=== PATIENT | male | born 1955 | race Caucasian/White ===

== ENCOUNTER 2017-12-05 06:05 | Day surgery (SDC) | payer MEDICARE, MEDICAID ==
[2017-12-05] VITALS (10 sets, daily range): BP systolic 137–160; BP diastolic 87–100
[~2017-12-05] VITALS: Ht 172.7 cm; Wt 65.8 kg
[2017-12-05] MEDS ORDERED: Proparacaine 0.5% Opth Soln 15ml RIGHT EYE ONE (06:15)
[2017-12-05] MEDS ORDERED: Phenylephrine 2.5% Op 2ml Soln ONE (07:10)
[2017-12-05] MEDS ORDERED: Cyclopentolate 1% Opth Sol 2ml ONE (07:10)
[2017-12-05] MEDS ORDERED: Tropicamide 1% Opth 15ml Soln ONE (07:10)
[2017-12-05] MEDS ORDERED: Proparacaine 0.5% Opth Soln 15ml ONE (07:11)
[2017-12-05] MEDS: Cyclopentolate 1% Opth Sol 2ml RIGHT EYE SCH ×3 (07:14→07:37)
[2017-12-05] MEDS: Tropicamide 1% Opth 15ml Soln RIGHT EYE SCH ×3 (07:14→07:37)
[2017-12-05] MEDS: Phenylephrine 2.5% Op 2ml Soln RIGHT EYE SCH ×3 (07:14→07:37)
[2017-12-05] MEDS ORDERED: HUMALOG MI100 UNIT/7 SUBQ (07:26)
[2017-12-05 08:14] LABS: BASOPHILS % (AUTO) 1.3 % (0.0-2.0); HEMATOCRIT 38.7 % (42.0-52.0); HEMOGLOBIN 13.5 G/DL (14.2-18.0); LYMPHOCYTES % (AUTO) 19.4 % (20.0-45.0); MEAN CORPUSCULAR VOLUME 89 FL (80-99); MONOCYTES % (AUTO) 8.7 % (1.0-10.0); NEUTROPHILS % (AUTO) 66.6 % (45.0-75.0); PLATELET COUNT 250 K/UL (150-450); RED BLOOD COUNT 4.36 M/UL (4.70-6.10); RED CELL DISTRIBUTION WIDTH 12.7 % (11.6-14.8); WHITE BLOOD COUNT 5.7 K/UL (4.8-10.8)
[2017-12-05 08:41] LABS: ANION GAP 4 mmol/L (5-15); BLOOD UREA NITROGEN 13 mg/dL (7-18); CALCIUM 9.2 MG/DL (8.5-10.1); CARBON DIOXIDE 29 MMOL/L (21-32); CHLORIDE 103 MMOL/L (98-107); CREATININE 1.1 MG/DL (0.55-1.30); POTASSIUM 3.6 MMOL/L (3.5-5.1); SODIUM 135 MMOL/L (136-145)
[2017-12-05] MEDS ORDERED: Kenalog-40 1ml Vial ONE (08:46)
[2017-12-05] MEDS ORDERED: BSS 500ml btl ONE (08:46)
[2017-12-05] MEDS ORDERED: Dexamethasone 4mg/ml vial ONE (08:47)
[2017-12-05] MEDS ORDERED: Bupivacaine 0.75% 30ml vial INJ ONE (08:47)
[2017-12-05] MEDS ORDERED: Maxitrol Opth Oint 3.5gm ONE (08:47)
[2017-12-05] MEDS ORDERED: EPINEPHrine 1mg/1ml Amp ONE (08:47)
[2017-12-05] MEDS ORDERED: Tetracaine 0.5% Opth 4ml Soln ONE (08:47)
[2017-12-05] MEDS ORDERED: Pred Forte 1% Opth Susp 1ml ONE (08:47)
[2017-12-05] MEDS ORDERED: BSS 15ml BTL ONE (08:48)
[2017-12-05] MEDS ORDERED: Lidocaine 2% MPF 5ml Vial INJ ONE (08:48)
[2017-12-05] MEDS ORDERED: Povidone-Iodine 5% opth solution ONE (08:48)
[2017-12-05] MEDS ORDERED: Goniosol 2.5% Opth Soln - 15ml ONE (08:48)
[2017-12-05] MEDS ORDERED: Acetylcholine Injection (OR) ONE (08:49)
[2017-12-05] MEDS ORDERED: Sodium Hyaluronate 10 mg/ml 0.85ml ONE (08:49)
[2017-12-05] MEDS ORDERED: Lidocaine 1% MPF 10mg/ml 5ml ONE (09:00)
[2017-12-05] MEDS ORDERED: NS Irrig 1000ml ONE (09:00)
[2017-12-05] MEDS ORDERED: Midazolam 2mg/2ml Inj ONE (09:00)
[2017-12-05] MEDS ORDERED: LR 1000ml ONE (09:00)
[2017-12-05] MEDS ORDERED: Sterile Water Irrig 1000ml IRRIG ONE (09:00)
[2017-12-05] MEDS ORDERED: LR 1000ml 1,000 ML IVLG SCH (09:03)
--- NOTE | 2017-12-05 09:03 | Anethesia Preoperative Eval ---
Anesthesia Pre-op PMH/ROS General Date of Evaluation: Dec 05, 2017 Time of Evaluation: 09:11 Anesthesiologist: Daylin ASA Score: ASA 3 Mallampati Score Class I : Soft palate, uvula, fauces, pillars visible Class II: Soft palate, uvula, fauces visible Class III: Soft palate, base of uvula visible Class IV: Only hard plate visible Mallampati Classification: Class II Surgeon: Laly Diagnosis: Retinal Detachment OD Surgical Procedure: Vitrectomy OD Anesthesia History: none Family History: no anesthesia problems Allergies: Coded Allergies: METFORMIN (Verified Allergy, Severe, Rash, 12/05/17) Medications: see eMAR Past Medical History Cardiovascular: Reports: HTN Gastrointestinal/Genitourinary: Reports: other - Incontinent Neurologic/Psychiatric: Reports: depression/anxiety, other - Seizures Endocrine: Reports: DM Hematology/Immune: Reports: anemia Anesthesia Pre-op Phys. Exam Physician Exam Last Vital Signs Date Time Temp Pulse Resp B/P (MAP) Pulse Ox O2 Delivery O2 Flow Rate FiO2 12/05/17 07:32 97.4 94 18 154/87 100 Room Air 97.4 Constitutional: NAD Neurologic: CN 2-12 intact Cardiovascular: RRR Respiratory: CTA Gastrointestinal: S/NT/ND Airway Exam Mallampati Score: Class II MO: limited ROM: limited Teeth: missing, intact Anesthesia Pre-op A/P Labs Hematology Test 12/05/17 06:50 White Blood Count 5.7 K/UL (4.8-10.8) Red Blood Count 4.36 M/UL (4.70-6.10) L Hemoglobin 13.5 G/DL (14.2-18.0) L Hematocrit 38.7 % (42.0-52.0) L Mean Corpuscular Volume 89 FL (80-99) Mean Corpuscular Hemoglobin 31.0 PG (27.0-31.0) Mean Corpuscular Hemoglobin Concent 34.9 G/DL (32.0-36.0) Red Cell Distribution Width 12.7 % (11.6-14.8) Platelet Count 250 K/UL (150-450) Mean Platelet Volume 7.6 FL (6.5-10.1) Neutrophils (%) (Auto) 66.6 % (45.0-75.0) Lymphocytes (%) (Auto) 19.4 % (20.0-45.0) L Monocytes (%) (Auto) 8.7 % (1.0-10.0) Eosinophils (%) (Auto) 4.0 % (0.0-3.0) H Basophils (%) (Auto) 1.3 % (0.0-2.0) Coagulation Test 12/05/17 06:50 Prothrombin Time 10.7 SEC (9.30-11.50) Prothromb Time International Ratio 1.0 (0.9-1.1) Activated Partial Thromboplast Time 27 SEC (23-33) Chemistry Test 12/05/17 06:50 Sodium Level 135 MMOL/L (136-145) L Potassium Level 3.6 MMOL/L (3.5-5.1) Chloride Level 103 MMOL/L (98-107) Carbon Dioxide Level 29 MMOL/L (21-32) Anion Gap 4 mmol/L (5-15) L Blood Urea Nitrogen 13 mg/dL (7-18) Creatinine 1.1 MG/DL (0.55-1.30) Estimat Glomerular Filtration Rate > 60 mL/min (>60) Glucose Level 109 MG/DL (74-106) H Calcium Level 9.2 MG/DL (8.5-10.1) Risk Assessment & Plan Assessment: ASA 3 Plan: GA Status Change Before Surgery: Gabo Orozco MD Dec 05, 2017 09:03
--- NOTE | 2017-12-05 09:04 | Immediate Post-Op Evaluation ---
Immediate Post-Op Evalulation Immediate Post-Op Evalulation Procedure: Vitrectomy OD Date of Evaluation: Dec 05, 2017 Time of Evaluation: 10:47 IV Fluids: 200 LR Blood Products: 0 Estimated Blood Loss: 1 Urinary Output: 0 Blood Pressure Systolic: 168 Blood Pressure Diastolic: 101 Pulse Rate: 98 Respiratory Rate: 16 O2 Sat by Pulse Oximetry: 100 Temperature (Fahrenheit): 97.5 Pain Score (1-10): 1 Nausea: No Vomiting: No Complications 0 Patient Status: awake, reacts, patent, none Hydration Status: adequate Gabo Mao MD Dec 05, 2017 09:04
--- NOTE | 2017-12-05 09:05 | 48 Hour Post Anesthesia Eval ---
Post Anesthesia Evaluation Procedure: Vitrectomy OD Date of Evaluation: Dec 05, 2017 Time of Evaluation: 13:06 Blood Pressure Systolic: 167 0: 99 Pulse Rate: 98 Respiratory Rate: 18 Temperature (Fahrenheit): 97.8 O2 Sat by Pulse Oximetry: 99 Airway: patent Nausea: No Vomiting: No Pain Intensity: 1 Hydration Status: adequate Cardiopulmonary Status: Stable Mental Status/LOC: patient returned to baseline Follow-up Care/Observations: 0 Post-Anesthesia Complications: 0 Follow-up care needed: ready to discharge Gabo Mao MD Dec 05, 2017 09:05
[2017-12-05] MEDS ORDERED: oxyCODONE HCL/Acetaminophen 5/325mg ORAL PRN (09:15)
[2017-12-05] MEDS ORDERED: Hydromorphone 0.5mg/0.5ml inj IVP PRN (09:15)
[2017-12-05] MEDS ORDERED: Labetalol 5mg/ml 20ml vial IV PRN (09:15)
[2017-12-05] MEDS ORDERED: fentaNYL 100 mcg/2 mL IV PRN (09:15)
[2017-12-05] MEDS ORDERED: HYDROcodone/Acetamin 7.5/325 tab ORAL PRN (09:15)
[2017-12-05] MEDS ORDERED: Atropine Inj 1mg/10ml Syr IV PRN (09:15)
[2017-12-05] MEDS ORDERED: Ketorolac 30mg Inj IV PRN ×2 (09:15)
[2017-12-05] MEDS ORDERED: Norco 5mg/325mg tab ORAL PRN (09:15)
[2017-12-05] MEDS ORDERED: LORazepam Inj 2mg/ml 1ml IV PRN (09:15)
[2017-12-05] MEDS ORDERED: Midazolam 2mg/2ml Inj IVP PRN (09:15)
[2017-12-05] MEDS ORDERED: DiphenhydrAMINE 50mg/ml Inj IVP PRN (09:15)
--- NOTE | 2017-12-05 09:20 | Pre-Procedure Note/Attestation ---
Pre-Procedure Note/Attestation Complete Prior to Procedure Planned Procedure: right Procedure Narrative: Patient with progressive PDR/TD OD Indications for Procedure Pre-Operative Diagnosis: PDR/TRD/VH OD Attestation I attest that I discussed the nature of the procedure; its benefits; risks and complications; and alternatives (and the risks and benefits of such alternatives ), prior to the procedure, with the patient (or the patient's legal insurance healthcare representative). I attest that, if there was a reasonable possibility of needing a blood transfusion, the patient (or the patient's legal insurance healthcare representative) was given the [facility] standardized written summary, pursuant to the Corey Manda Blood Safety Act ([place] Health and Safety Code # 1645, as amended). I attest that I re-evaluated the patient just prior to the surgery and that there has been no change in the patient's H&P, except as documented below: Ryan Ruffin M.D. Dec 05, 2017 09:20
--- NOTE | 2017-12-05 09:21 | Brief Operative Note ---
Immediate Post Operative Note Operative Note Pre-op Diagnosis: PDR/TRD/VH OD Procedure: PPV/MP/EL/SO OD Post-op Diagnosis: Same Surgeon: Laly Anesthesia: local Specimen: none Complications: none Condition: stable Fluids: min Estimated Blood Loss: none Drains: none Implant(s) used?: Yes - SO Ryan Ruffin M.D. Dec 05, 2017 09:21
[2017-12-05] MEDS ORDERED: Lacri-Lube Opth Oint 3.5gm ONE (09:29)
--- NOTE | 2017-12-05 09:32 | Operative Note - PDOC ---
Operative Note Operative Note Pre-op Diagnosis: PDR/TRD/VH OD Procedure: PPV/MP/EL/SO (1K) OD Post-op Diagnosis: Same Surgeon: Laly Anesthesia: local Specimen: none Complications: none Condition: stable Fluids: min Estimated Blood Loss: none Drains: none Implant(s) used?: Yes - SO Indications for Procedure Location: [facility] [place] Pre-operative Diagnosis: 1. PDR/TRD/VH, RIGHT EYE 2. Cataract, RIGHT EYE Post-operative Diagnosis: Same Procedure: Pars plana vitrectomy, membrane peel, endolaser, air-fluid exchange , silicone oil, RIGHT EYE Surgeon: Ryan Ruffin M.D. Anesthesia: RB Complications: None Indications for the procedure: The patient has vision loss due PDR/TRD/VH. He presents today for surgery after review of the risks, benefits, alternative and signing informed consent into the medical chart. Description of Procedure Procedure performed: The patient was met in the pre-operative area where informed consent was reviewed. The operative eye was verified, marked and dilated. The patient was transferred to the operative suite, where cardiopulmonary monitoring was established and rtrobulbar anesthetic was administered without complications. The eye was prepped and draped in sterile ophthalmic fashion. Under microscope visualization the 23 gauge infusion line was placed 4 millimeters inferotemporally. After visualization of the tip in the vitreous cavity, the infusion line was turned on. The superotemporal and superonasal cannulas were placed. Peripheral and core vitrectomy was performed. As the vitreous was cleared the posterior pole was revealed to be elevated with gliosis. The membranes were peeled and active hemorrhage was cauterized. Further peripheral vitrectomy was performed. PRP was applied to the periphery. Inspection of the periphery revealed no iatrogenic breaks. Air fluid exchange was performed. Silicone oil (1K cS) was infused into the eye. The cannulas were removed. The eye maintained normal intraocular pressure. Subconjunctival vancomycin and dexamethasone were administered. The lid speculum was removed. The eye was cleaned of prep and drape. Atropine drop and Maxitrol ointment was applied. A pressure patch was placed. The patient was turned over to the anesthesia team and transferred in stable condition to the PACU. Ryan Ruffin M.D. Dec 05, 2017 09:32
--- NOTE | 2017-12-05 16:45 | Pre-op HX & Phy Repo 2 SIG ---
DATE OF ADMISSION: 12/05/2017 PRESURGICAL INTERNAL MEDICINE HISTORY AND PHYSICAL REASON FOR EVALUATION: I was asked by Dr. Ryan Ruffin to see this 62-year-old male who is going for emergency surgery on the right eye. The patient has a tractional retinal detachment, right eye. Please see full Ophthalmology History and Physical by Dr. Ruffin. The patient was examined. Chart was reviewed. History obtained from the patient and his brother at the bedside. PAST MEDICAL HISTORY AND REVIEW OF SYSTEMS: Remarkable for history of hypertension, no medication treatment. The patient is a diabetic, on insulin. The patient denies history of chest pain, palpitation, or heart attack. Denies history of respiratory problem, asthma, bronchitis, or pneumonia. No history of GI bleeding or heartburn. No ulcer disease or hepatitis. Denies history of renal insufficiency. No history of thyroid problem. Denies history of anemia. The patient had a fall and subdural hematoma in July 2017. 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 The patient is still on the IV and oral antibiotics. Brother shows me IV medication, which is vancomycin once a day. PAST SURGICAL HISTORY: None. FAMILY HISTORY: Mother from complication of the breast cancer and father from the stroke and he has also diabetes mellitus. ALLERGIES: The patient is allergic to metformin, developed skin rashes and itching. HABITS: The patient smoked in the 1970s for about between 5 and 7 years, but he 4-pack a day. Also alcohol in the past. No street drugs. MEDICATIONS: The patient uses insulin to control blood sugar and presently using IV vancomycin and oral antibiotics. PHYSICAL EXAMINATION: GENERAL: The patient is alert, small-framed male, in his 60s, no acute distress. VITAL SIGNS: Blood pressure 154/87, temperature 97.4, pulse 94 and regular, respirations 18, and O2 saturation 100% on room air. SKIN: The patient's skin dry. Normal turgor, cold, pale. No rashes. No ulcer or open wound. HEENT: Head, normocephalic. Eyes, full description per Dr. Marlyn Ruffin. Mouth, clear and moist. No dentures. NECK: Supple. No jugular vein distention. Carotids artery +2. Trachea midline. CHEST: No deformity or asymmetry. LUNGS: Clear. No rales or rhonchi. HEART: Sinus rhythm. No ectopy. No murmur. No S3, S4. ABDOMEN: Soft, benign. Liver and spleen not enlarged. No rebound. EXTREMITIES: +1 pedal edema on the left ankle. No varicose veins. No calf tenderness. GENITOURINARY TRACT: No CVA tenderness. No dysuria. NERVOUS SYSTEM: Right facial asymmetry, Herrera's palsy. LABORATORY WORK: CBC, white blood cells 5.7, hemoglobin 13.5, hematocrit 38.7. Chemistry pending. Fasting blood sugar, fingerstick 110 mg/dL. ECG, normal sinus rhythm, 93 per minute, normal ECG. The patient did not eat or drink from 6 p.m. yesterday. IMPRESSION: 1. Tractional retinal detachment, right eye. 2. Hypertension, not treated. 3. Diabetes mellitus, insulin dependent. 4. Anemia. 5. Right internal otitis. 6. Right Herrera's palsy. PLAN: Pars plana vitrectomy 23 G, membrane peeling, Endolaser right eye per Dr. Marlyn Ruffin. CONCLUSION: The patient is a 62-year-old diabetic, which is controlled. The patient has a history of hypertension, but does not take any medication. The patient also has a recent otitis media, right ear, which is complication of Herrera's palsy on the right. The patient did not eat or drink from last night 6 p.m. His EKG is normal. The patient's condition optimized for surgery. Thank you very much, Dr. Ruffin, for privilege to participate in presurgical care of this interesting patient. Gloria Delgado M.D. DR: LISSETH JOB#: [id number] CC:
--- NOTE | 2017-12-08 16:20 | Cardiology Report ---
APPROVED REPORT EKG Measurement Heart [id number] Normal sinus rhythm Normal ECG
== END 2017-12-05 13:20 | disposition home or self-care (01) ==
LOC: SUR 06:05
DX: H33.41 Traction detachment of retina, right eye (principal); I10 Essential (primary) hypertension; E11.9 Type 2 diabetes mellitus without complications; Z79.4 Long term (current) use of insulin; D64.9 Anemia, unspecified; H83.01 Labyrinthitis, right ear; G51.0 Bell's palsy; F17.210 Nicotine dependence, cigarettes, uncomplicated; F32.9 Major depressive disorder, single episode, unspecified; F41.9 Anxiety disorder, unspecified; Z88.8 Allergy status to other drugs, medicaments and biological substances; Z80.3 Family history of malignant neoplasm of breast; Z83.3 Family history of diabetes mellitus; Z82.3 Family history of stroke; H26.9 Unspecified cataract
CPT/HCPCS: 36415; 67025; 67042; 80048; 82962; 85025; 85610; 85730; 93005; J1100; J1885; J2250; J3370; J3490; J7120; 94003; 94150

== ENCOUNTER 2017-12-31 08:54 | Day surgery (SDC) | payer MEDICARE, MEDICAID ==
[~2017-12-31] VITALS: Ht 170.2 cm; Wt 63.0 kg
[2017-12-31] VITALS (8 sets, daily range): BP systolic 123–166; BP diastolic 78–93
[~2017-12-31 08:54] MED LIST: BSS 15ml BTL ONE; BSS 500ml btl ONE; Bupivacaine 0.75% 30ml vial INJ ONE; Dexamethasone 4mg/ml vial ONE; EPINEPHrine 1mg/1ml Amp ONE; Goniosol 2.5% Opth Soln - 15ml ONE; HUMALOG MI100 UNIT/7 SUBQ; Kenalog-40 1ml Vial ONE; Lidocaine 2% MPF 5ml Vial INJ ONE; Maxitrol Opth Oint 3.5gm ONE; Povidone-Iodine 5% opth solution ONE; Pred Forte 1% Opth Susp 1ml ONE; Sodium Hyaluronate 10 mg/ml 0.85ml ONE; Tetracaine 0.5% Opth 4ml Soln ONE
[2017-12-31] MEDS ORDERED: Cyclopentolate 1% Opth Sol 2ml ONE (09:23)
[2017-12-31] MEDS ORDERED: Proparacaine 0.5% Opth Soln 15ml ONE (09:24)
[2017-12-31] MEDS ORDERED: Phenylephrine 2.5% Op 2ml Soln ONE (09:24)
[2017-12-31] MEDS ORDERED: Tropicamide 1% Opth 15ml Soln ONE (09:24)
[2017-12-31] MEDS ORDERED: Proparacaine 0.5% Opth Soln 15ml LEFT EYE ONE (09:30)
[2017-12-31] MEDS: Cyclopentolate 1% Opth Sol 2ml LEFT EYE SCH ×3 (09:32→09:51)
[2017-12-31] MEDS: Phenylephrine 2.5% Op 2ml Soln LEFT EYE SCH ×3 (09:33→09:51)
[2017-12-31] MEDS: Tropicamide 1% Opth 15ml Soln LEFT EYE SCH ×3 (09:33→09:51)
[2017-12-31] MEDS ORDERED: Acetylcholine Injection (OR) ONE (09:51)
[2017-12-31] MEDS ORDERED: HUMALOG100 UNIT/4 SUBQ (09:58)
[2017-12-31] MEDS ORDERED: LANTUS SOL100 UNIT/1 SUBQ (10:01)
[2017-12-31] MEDS ORDERED: CEFEPIME IVP (10:10)
[2017-12-31] MEDS ORDERED: VANCO-0.9%750 MG/150 IV (10:10)
[2017-12-31] MEDS ORDERED: Indocyanine Green 25mg Inj INJ ONE (10:30)
[2017-12-31] MEDS ORDERED: Propofol 200mg/20ml IV ONE (10:57)
[2017-12-31] MEDS ORDERED: Labetalol 5mg/ml 20ml vial IV ONE (11:00)
[2017-12-31] MEDS ORDERED: Sterile Water Irrig 1000ml IRRIG ONE (11:00)
[2017-12-31] MEDS ORDERED: Midazolam 2mg/2ml Inj ONE (11:00)
[2017-12-31] MEDS ORDERED: NS Irrig 1000ml ONE (11:00)
[2017-12-31] MEDS ORDERED: LR 1000ml ONE (11:00)
--- NOTE | 2017-12-31 11:13 | Pre-Procedure Note/Attestation ---
Pre-Procedure Note/Attestation Complete Prior to Procedure Planned Procedure: left Procedure Narrative: PDR/VH/TRD OS Plan for PPV Indications for Procedure Pre-Operative Diagnosis: PDR/VH/TRD OS Plan for PPV Attestation I attest that I discussed the nature of the procedure; its benefits; risks and complications; and alternatives (and the risks and benefits of such alternatives ), prior to the procedure, with the patient (or the patient's legal sales representative malt liquors). I attest that, if there was a reasonable possibility of needing a blood transfusion, the patient (or the patient's legal sales representative malt liquors) was given the [facility] standardized written summary, pursuant to the Corey [place] Blood Safety Act ([place] Health and Safety Code # 1645, as amended). I attest that I re-evaluated the patient just prior to the surgery and that there has been no change in the patient's H&P, except as documented below: Ryan Ruffin M.D. Dec 31, 2017 11:13
--- NOTE | 2017-12-31 11:14 | Brief Operative Note ---
Immediate Post Operative Note Operative Note Pre-op Diagnosis: PDR/VH/TRD OS Plan for PPV Procedure: PPV/EL/MP/SO OS Post-op Diagnosis: Same Surgeon: Laly Anesthesia: local Specimen: none Complications: none Condition: stable Fluids: Min Estimated Blood Loss: minimal Drains: none Implant(s) used?: Yes - SO Ryan Ruffin M.D. Dec 31, 2017 11:14
--- NOTE | 2017-12-31 11:14 | Operative Note - PDOC ---
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 After review of the risks, benefits, alternative and the patient signed informed consent into the medical chart. Description of Procedure Procedure performed: The patient was met in the pre-operative area where informed consent was reviewed. The operative eye was verified, marked and dilated. The patient was transferred to the operative suite, where cardiopulmonary monitoring was established and rtrobulbar anesthetic was administered without complications. The eye was prepped and draped in sterile ophthalmic fashion. Under microscope visualization the 23 gauge infusion line was placed 4 millimeters inferotemporally. After visualization of the tip in the vitreous cavity, the infusion line was turned on. The superotemporal and superonasal cannulas were placed. Peripheral and core vitrectomy was performed. As the vitreous was cleared the posterior pole was revealed to be elevated with gliosis and exudates in the macula. The membranes were peeled and an area of retinal elevation temporally was dissected to allow the retina to reattached. Endolaser was applied to surround the retinal breaks. Further peripheral vitrectomy was performed. PRP was applied to the periphery as there was very little laser scarring noted. Inspection of the periphery revealed no iatrogenic breaks. Air fluid exchange was performed. Silicone oil (1K cS) was infused into the eye. The cannulas were removed. The eye maintained normal intraocular pressure. Subconjunctival vancomycin and dexamethasone were administered. The lid speculum was removed. The eye was cleaned of prep and drape. Atropine drop and Maxitrol ointment was applied. A pressure patch was placed. The patient was turned over to the anesthesia team and transferred in stable condition to the PACU. Ryan Ruffin M.D. Dec 31, 2017 11:14
--- NOTE | 2017-12-31 11:42 | Anethesia Preoperative Eval ---
Anesthesia Pre-op PMH/ROS General Date of Evaluation: Dec 31, 2017 Time of Evaluation: 10:55 Anesthesiologist: Oni ASA Score: ASA 3 Mallampati Score Class I : Soft palate, uvula, fauces, pillars visible Class II: Soft palate, uvula, fauces visible Class III: Soft palate, base of uvula visible Class IV: Only hard plate visible Mallampati Classification: Class II Surgeon: Laly Diagnosis: Retinal detachment left eye Surgical Procedure: Vitrectomy, membrane peeling Family History: no anesthesia problems Allergies: Coded Allergies: METFORMIN (Verified Allergy, Severe, Rash, 12/05/17) Medications: see eMAR Past Medical History Cardiovascular: Reports: HTN; Denies: CAD, [place], valve dz, arrhythmia, other Pulmonary: Denies: asthma, COPD, MADDY, other Gastrointestinal/Genitourinary: Denies: GERD, CRI, ESRD, other Neurologic/Psychiatric: Denies: dementia, CVA, depression/anxiety, TIA, other Endocrine: Reports: DM; Denies: hypothyroidism, steroids, other HEENT: Denies: cataract (L), cataract (R), glaucoma, [place] (L), [place] (R), other Hematology/Immune: Denies: anemia, DVT, bleeding disorder, other Musculoskeletal/Integumentary: Denies: OA, RA, DJD, DDD, edema, other PMH Narrative: IDDM, HTN PSxH Narrative: Vitrectomy Anesthesia Pre-op Phys. Exam Physician Exam Last Vital Signs Date Time Temp Pulse Resp B/P (MAP) Pulse Ox O2 Delivery O2 Flow Rate FiO2 12/31/17 10:01 98.0 93 18 166/93 99 Room Air 98.0 Constitutional: NAD Neurologic: CN 2-12 intact Cardiovascular: RRR, no M/R/G Respiratory: CTA Gastrointestinal: S/NT/ND Airway Exam Mallampati Score: Class II MO: full ROM: full Teeth: intact Anesthesia Pre-op A/P Studies Pre-op Studies: EKG - SR as per H&P Risk Assessment & Plan Assessment: Detached retina Plan: MAC Status Change Before Surgery: No Pre-Antibiotics Drug: None Corey Bunn MD Dec 31, 2017 11:42
[2017-12-31] MEDS ORDERED: LR 1000ml 1,000 ML IVLG SCH (11:43)
--- NOTE | 2017-12-31 11:43 | Immediate Post-Op Evaluation ---
Immediate Post-Op Evalulation Immediate Post-Op Evalulation Procedure: Vitrectomy, membrane peel left eye Date of Evaluation: Dec 31, 2017 Time of Evaluation: 12:40 IV Fluids: 200 Blood Pressure Systolic: 129 Blood Pressure Diastolic: 80 Pulse Rate: 95 Respiratory Rate: 20 O2 Sat by Pulse Oximetry: 99 Temperature (Fahrenheit): 98.2 Pain Score (1-10): 0 Nausea: No Vomiting: No Complications No complication Patient Status: awake, patent, none Hydration Status: adequate Drug: None Corey Bunn MD Dec 31, 2017 11:43
[2017-12-31] MEDS ORDERED: fentaNYL 100 mcg/2 mL IV PRN (11:45)
--- NOTE | 2017-12-31 12:33 | 48 Hour Post Anesthesia Eval ---
Post Anesthesia Evaluation Procedure: Vitrectomy, membrane peel left eye Date of Evaluation: Dec 31, 2017 Time of Evaluation: 13:00 Blood Pressure Systolic: 135 0: 80 Pulse Rate: 95 Respiratory Rate: 18 O2 Sat by Pulse Oximetry: 99 Airway: patent Nausea: No Vomiting: No Pain Intensity: 0 Hydration Status: adequate Cardiopulmonary Status: Stable Mental Status/LOC: patient returned to baseline Follow-up Care/Observations: As per surgery Post-Anesthesia Complications: No anesthetic complication Follow-up care needed: N/A Corey Bunn MD Dec 31, 2017 12:33
== END 2017-12-31 14:25 | disposition home or self-care (01) ==
LOC: SUR 08:54
DX: E11.3522 Type 2 diabetes mellitus with proliferative diabetic retinopathy with traction retinal detachment involving the macula, left eye (principal); H43.12 Vitreous hemorrhage, left eye; I10 Essential (primary) hypertension; Z83.3 Family history of diabetes mellitus; Z82.3 Family history of stroke; Z80.3 Family history of malignant neoplasm of breast; Z88.8 Allergy status to other drugs, medicaments and biological substances; Z79.4 Long term (current) use of insulin
CPT/HCPCS: 67040; 67042; 82962; J1100; J2250; J2704; J3370; J3490; J7120; 94003; 94150

== ENCOUNTER 2018-07-09 08:12 | Day surgery (SDC) | payer MEDICARE, MEDICAID ==
[~2018-07-09] VITALS: Ht 170.2 cm; Wt 59.0 kg
[2018-07-09] VITALS (7 sets, daily range): BP systolic 119–128; BP diastolic 62–72
[~2018-07-09 08:12] MED LIST changes: -BSS 15ml BTL ONE; -BSS 500ml btl ONE; -Bupivacaine 0.75% 30ml vial INJ ONE; +CEFEPIME IVP; -Dexamethasone 4mg/ml vial ONE; -EPINEPHrine 1mg/1ml Amp ONE; -Goniosol 2.5% Opth Soln - 15ml ONE; +HUMALOG100 UNIT/4 SUBQ; -Kenalog-40 1ml Vial ONE; +LANTUS SOL100 UNIT/1 SUBQ; -Lidocaine 2% MPF 5ml Vial INJ ONE; -Maxitrol Opth Oint 3.5gm ONE; -Povidone-Iodine 5% opth solution ONE; -Pred Forte 1% Opth Susp 1ml ONE; +Proparacaine 0.5% Opth Soln 15ml RIGHT EYE SCH; -Sodium Hyaluronate 10 mg/ml 0.85ml ONE; -Tetracaine 0.5% Opth 4ml Soln ONE; +VANCO-0.9%750 MG/150 IV
[2018-07-09] MEDS ORDERED: Kenalog-40 1ml Vial ONE (09:34)
[2018-07-09] MEDS ORDERED: EPINEPHrine 1mg/1ml Amp ONE (09:34)
[2018-07-09] MEDS ORDERED: Lidocaine 2% MPF 5ml Vial INJ ONE (09:34)
[2018-07-09] MEDS ORDERED: Goniosol 2.5% Opth Soln - 15ml ONE (09:35)
[2018-07-09] MEDS ORDERED: Maxitrol Opth Oint 3.5gm ONE (09:35)
[2018-07-09] MEDS ORDERED: Pred Forte 1% Opth Susp 1ml ONE (09:35)
[2018-07-09] MEDS ORDERED: Dexamethasone 4mg/ml vial ONE (09:35)
[2018-07-09] MEDS ORDERED: BSS 500ml btl ONE (09:36)
[2018-07-09] MEDS ORDERED: Sodium Hyaluronate 10 mg/ml 0.85ml ONE (09:36)
[2018-07-09] MEDS ORDERED: Bupivacaine 0.75% 30ml vial INJ ONE (09:36)
[2018-07-09] MEDS ORDERED: Povidone-Iodine 5% opth solution ONE (09:36)
[2018-07-09] MEDS ORDERED: BSS 15ml BTL ONE (09:36)
[2018-07-09] MEDS ORDERED: Tetracaine 0.5% Opth 4ml Soln ONE (09:40)
[2018-07-09] MEDS: Cyclopentolate 1% Opth Sol 2ml RIGHT EYE SCH ×3 (10:04→10:22)
[2018-07-09] MEDS: Tropicamide 1% Opth 15ml Soln RIGHT EYE SCH ×3 (10:04→10:23)
[2018-07-09] MEDS: Phenylephrine 2.5% Op 2ml Soln RIGHT EYE SCH ×3 (10:04→10:23)
[2018-07-09] MEDS ORDERED: Propofol 200mg/20ml IV ONE (12:14)
--- NOTE | 2018-07-09 12:14 | Anethesia Preoperative Eval ---
Anesthesia Pre-op PMH/ROS General Date of Evaluation: Jul 09, 2018 Time of Evaluation: 12:08 Anesthesiologist: Sofie Taylor CRNA ASA Score: ASA 3 Mallampati Score Class I : Soft palate, uvula, fauces, pillars visible Class II: Soft palate, uvula, fauces visible Class III: Soft palate, base of uvula visible Class IV: Only hard plate visible Mallampati Classification: Class III Surgeon: Laly Diagnosis: Retinal detachment Surgical Procedure: RIGHT eye pars plana vitrecttomy, silicone oil Anesthesia History: none Social History: smoking Family History: no anesthesia problems Allergies: Coded Allergies: METFORMIN (Verified Allergy, Severe, Rash, 12/05/17) Medications: see eMAR Patient NPO?: Yes NPO Date: Jul 09, 2018 NPO Time: 00:00 Past Medical History Cardiovascular: Reports: other - orthostatic hypotension; Denies: HTN, CAD, [place], valve dz, arrhythmia Pulmonary: Denies: asthma, COPD, MADDY, other Gastrointestinal/Genitourinary: Denies: GERD, CRI, ESRD, other Neurologic/Psychiatric: Reports: other - CN VII palsy, bells palsy; Denies: dementia, CVA, depression/anxiety, TIA Endocrine: Reports: DM, other - Severe dehydration, chechexia, IV hydration q MWF; peripheral neuropathy; Denies: hypothyroidism, steroids HEENT: Reports: other - (B) retinal detachment; LEFT bells palsy; Denies: cataract (L), cataract (R), glaucoma, [place] (L), [place] (R) Hematology/Immune: Denies: anemia, DVT, bleeding disorder, other Musculoskeletal/Integumentary: Reports: other - wheelchair dependent; Denies: OA, RA, DJD, DDD, edema PMH Narrative: as above PSxH Narrative: multiple eye surgeries, ear surgery Anesthesia Pre-op Phys. Exam Physician Exam Last Vital Signs Date Time Temp Pulse Resp B/P (MAP) Pulse Ox O2 Delivery O2 Flow Rate FiO2 07/09/18 09:16 97.9 86 20 128/72 97 Room Air 97.9 Constitutional: NAD Neurologic: CN 2-12 intact Cardiovascular: RRR Respiratory: CTA Gastrointestinal: S/NT/ND Airway Exam Mallampati Score: Class III MO: limited TMD: > 3 FB Teeth: missing, broken Dentures: no upper, no lower Anesthesia Pre-op A/P Labs see chart Ankit Zuleta @ [id number] Studies Pre-op Studies: EKG - NSR Risk Assessment & Plan Status Change Before Surgery: No Sofie Taylor CRNA Jul 09, 2018 12:14
[2018-07-09] MEDS ORDERED: fentaNYL 100 mcg/2 mL IV ONE (12:15)
[2018-07-09] MEDS ORDERED: Midazolam 2mg/2ml Inj ONE (12:15)
--- NOTE | 2018-07-09 12:59 | Pre-Procedure Note/Attestation ---
Pre-Procedure Note/Attestation Complete Prior to Procedure Planned Procedure: right Procedure Narrative: PPV/SOR/EL OD Indications for Procedure Pre-Operative Diagnosis: PDR OD Attestation I attest that I discussed the nature of the procedure; its benefits; risks and complications; and alternatives (and the risks and benefits of such alternatives ), prior to the procedure, with the patient (or the patient's legal technology sales representative). I attest that, if there was a reasonable possibility of needing a blood transfusion, the patient (or the patient's legal technology sales representative) was given the [facility] standardized written summary, pursuant to the [place] Blood Safety Act ([place] Health and Safety Code # 1645, as amended). I attest that I re-evaluated the patient just prior to the surgery and that there has been no change in the patient's H&P, except as documented below: Ryan Ruffin M.D., MD Jul 09, 2018 12:59
[2018-07-09] MEDS ORDERED: LR 1000ml ONE (13:00)
--- NOTE | 2018-07-09 13:01 | Operative Note - PDOC ---
Operative Note Operative Note Pre-op Diagnosis: Proliferative diabetic retinopathy with tractional retinal detachment repaired s /p SO placement, cataract, RIGHT EYE Procedure: Procedure: Pars plana vitrectomy, SO removal, endolaser, air-fluid exchange RIGHT EYE Post-op Diagnosis: same as pre-op Surgeon: Laly Anesthesia: local Specimen: none Complications: none Condition: stable Fluids: minimal Estimated Blood Loss: none Drains: none Implant(s) used?: No Indications for Procedure Indications for the procedure: The patient has vision loss due to proliferative diabetic retinopathy/ tractional retinal detachment with SO and presents today for surgery. After review of the risks, benefits, alternative and the patient signed informed consent into the medical chart. Description of Procedure Procedure performed: The patient was met in the pre-op area where informed consent was reviewed. The operative eye was verified, marked and dilated. The patient was transferred to the operative suite, where cardiopulmonary monitoring was established and peribulbar anesthetic was administered without complications. The eye was prepped and draped in sterile ophthalmic fashion. Under microscope visualization the 23 gauge infusion line was placed inferotemporally. After visualization of the tip in the vitreous cavity, the infusion line was turned on. The superotemporal and superonasal cannulas were placed. The SO was removed from the eye. Under BIOM visualization, the view of the posterior pole was limited by cataract. Inspection of the posterior pole revealed areas of NV; thus further peripheral vitrectomy was performed and endolaser was applied to perform complete PRP. No breaks were noted on peripheral exam. Air-fluid exchange was performed. The cannulas were removed and sclerotomies were sutured. The eye maintained normal intraocular pressure. Subconjunctival vancomycin and dexamethasone were administered. The lid speculum was removed. The eye was cleaned of prep and drape. Atropine drop and Maxitrol ointment was applied. A pressure patch was placed. The patient was turned over to the anesthesia team and transferred in stable condition to the PACU. Ryan Ruffin M.D., MD Jul 09, 2018 13:01
[2018-07-09] MEDS ORDERED: Carbachol 0.01% Op Soln 1.5ml vial ONE (13:24)
[2018-07-09] MEDS ORDERED: Acetylcholine Injection (OR) ONE (13:25)
--- NOTE | 2018-07-09 13:57 | Immediate Post-Op Evaluation ---
Immediate Post-Op Evalulation Immediate Post-Op Evalulation Procedure: Right pars plana vitrectomy, silicone oil Date of Evaluation: Jul 09, 2018 Time of Evaluation: 13:56 IV Fluids: 600 ml Blood Products: 0 Estimated Blood Loss: minimal Blood Pressure Systolic: 121 Blood Pressure Diastolic: 66 Pulse Rate: 85 Respiratory Rate: 18 O2 Sat by Pulse Oximetry: 100 Temperature (Fahrenheit): 99.2 Pain Score (1-10): 0 Nausea: No Vomiting: No Complications none Patient Status: awake, reacts, patent Hydration Status: adequate Koki Singleton CRNA Jul 09, 2018 13:57
--- NOTE | 2018-07-09 14:15 | 48 Hour Post Anesthesia Eval ---
Post Anesthesia Evaluation Procedure: Right pars plana vitrectomy, silicone oil removal, laser Date of Evaluation: Jul 09, 2018 Time of Evaluation: 14:14 Blood Pressure Systolic: 122 0: 64 Pulse Rate: 88 Respiratory Rate: 20 Temperature (Fahrenheit): 98.8 O2 Sat by Pulse Oximetry: 98 Airway: patent Nausea: No Vomiting: No Pain Intensity: 0 Hydration Status: adequate Cardiopulmonary Status: stable Mental Status/LOC: patient returned to baseline Follow-up Care/Observations: per surgeon Post-Anesthesia Complications: none Follow-up care needed: ready to discharge Sofie Taylor CRNA Jul 09, 2018 14:15
== END 2018-07-09 16:00 | disposition home or self-care (01) ==
LOC: SUR 08:12
DX: H33.21 Serous retinal detachment, right eye (principal); E11.3591 Type 2 diabetes mellitus with proliferative diabetic retinopathy without macular edema, right eye; Z79.4 Long term (current) use of insulin; E11.40 Type 2 diabetes mellitus with diabetic neuropathy, unspecified; G51.0 Bell's palsy; E78.1 Pure hyperglyceridemia; R64 Cachexia; E43 Unspecified severe protein-calorie malnutrition; Z99.3 Dependence on wheelchair
CPT/HCPCS: 67121; 82962; J0171; J1100; J2250; J2704; J3010; J3370; J3490; 94003; 94150

== ENCOUNTER 2018-07-22 09:04 | Day surgery (SDC) | payer MEDICARE, MEDICAID ==
[~2018-07-22] VITALS: Ht 170.2 cm; Wt 58.5 kg
[2018-07-22] VITALS (9 sets, daily range): BP systolic 148–173; BP diastolic 81–94
[~2018-07-22 09:04] MED LIST changes: +Proparacaine 0.5% Opth Soln 15ml LEFT EYE SCH; -Proparacaine 0.5% Opth Soln 15ml RIGHT EYE SCH
[2018-07-22] MEDS ORDERED: Cyclopentolate 1% Opth Sol 2ml ONE (09:23)
[2018-07-22] MEDS ORDERED: Phenylephrine 2.5% Op 2ml Soln ONE (09:23)
[2018-07-22] MEDS ORDERED: Tropicamide 1% Opth 15ml Soln ONE (09:24)
[2018-07-22] MEDS ORDERED: Proparacaine 0.5% Opth Soln 15ml ONE (09:24)
[2018-07-22] MEDS: Tropicamide 1% Opth 15ml Soln LEFT EYE SCH ×3 (09:51→10:11)
[2018-07-22] MEDS: Phenylephrine 2.5% Op 2ml Soln LEFT EYE SCH ×3 (09:52→10:11)
[2018-07-22] MEDS: Cyclopentolate 1% Opth Sol 2ml LEFT EYE SCH ×3 (09:52→10:11)
[2018-07-22] MEDS ORDERED: Lidocaine 2% MPF 5ml Vial INJ ONE (10:16)
[2018-07-22] MEDS ORDERED: EPINEPHrine 1mg/1ml Amp ONE (10:16)
[2018-07-22] MEDS ORDERED: Kenalog-40 1ml Vial ONE (10:16)
[2018-07-22] MEDS ORDERED: Pred Forte 1% Opth Susp 1ml ONE (10:17)
[2018-07-22] MEDS ORDERED: Goniosol 2.5% Opth Soln - 15ml ONE (10:17)
[2018-07-22] MEDS ORDERED: Maxitrol Opth Oint 3.5gm ONE ×2 (10:17→10:19)
[2018-07-22] MEDS ORDERED: Carbachol 0.01% Op Soln 1.5ml vial ONE (10:17)
[2018-07-22] MEDS ORDERED: Dexamethasone 4mg/ml vial ONE (10:17)
[2018-07-22] MEDS ORDERED: BSS 500ml btl ONE (10:18)
[2018-07-22] MEDS ORDERED: Povidone-Iodine 5% opth solution ONE (10:18)
[2018-07-22] MEDS ORDERED: BSS 15ml BTL ONE (10:18)
[2018-07-22] MEDS ORDERED: Tetracaine 0.5% Opth 4ml Soln ONE (10:18)
[2018-07-22] MEDS ORDERED: Bupivacaine 0.75% 30ml vial INJ ONE (10:18)
[2018-07-22] MEDS ORDERED: Sodium Hyaluronate 10 mg/ml 0.85ml ONE (10:19)
[2018-07-22] MEDS ORDERED: VITAMIN C500 M5 PO (10:39)
[2018-07-22] MEDS ORDERED: VITAMIN D31000 UNI2 PO (10:39)
--- NOTE | 2018-07-22 10:51 | Anethesia Preoperative Eval ---
Anesthesia Pre-op PMH/ROS General Date of Evaluation: Jul 22, 2018 Anesthesiologist: Kartik ASA Score: ASA 3 Mallampati Score Class I : Soft palate, uvula, fauces, pillars visible Class II: Soft palate, uvula, fauces visible Class III: Soft palate, base of uvula visible Class IV: Only hard plate visible Mallampati Classification: Class II Surgeon: Laly Diagnosis: Left eye glaucoma Surgical Procedure: Left eye vitrectomy Anesthesia History: none Family History: no anesthesia problems Allergies: Coded Allergies: METFORMIN (Verified Allergy, Severe, Rash, 07/22/18) RASH, SWELLING Medications: see eMAR Patient NPO?: Yes NPO Date: Jul 21, 2018 NPO Time: 10:00 Past Medical History Cardiovascular: Reports: HTN; Denies: CAD, NH, valve dz, arrhythmia, other Pulmonary: Denies: asthma, COPD, MADDY, other Gastrointestinal/Genitourinary: Denies: GERD, CRI, ESRD, other Neurologic/Psychiatric: Reports: depression/anxiety, other - h/o bells palsy; Denies: dementia, CVA, TIA Endocrine: Reports: DM, other - diabetic retinopathy; Denies: hypothyroidism, steroids HEENT: Reports: glaucoma; Denies: cataract (L), cataract (R), [place] (L), [place] (R), other Hematology/Immune: Denies: anemia, DVT, bleeding disorder, other Musculoskeletal/Integumentary: Denies: OA, RA, DJD, DDD, edema, other Other: other - cachectic PSxH Narrative: right eye vitrectomy, left ear surgery Anesthesia Pre-op Phys. Exam Physician Exam Last Vital Signs Date Time Temp Pulse Resp B/P (MAP) Pulse Ox O2 Delivery O2 Flow Rate FiO2 07/22/18 10:30 97.7 84 18 173/94 96 Room Air 97.7 Constitutional: NAD Cardiovascular: RRR Respiratory: CTA Airway Exam Mallampati Score: Class II MO: limited ROM: limited Anesthesia Pre-op A/P Labs see chart Studies Pre-op Studies: EKG - sr Risk Assessment & Plan Assessment: ASA III Plan: MAC Status Change Before Surgery: No Pre-Antibiotics Drug: N/A Estela Rome MD Jul 22, 2018 10:51
[2018-07-22] MEDS ORDERED: Lidocaine 1% MPF 10mg/ml 5ml ONE (11:00)
[2018-07-22] MEDS ORDERED: LR 1000ml ONE (11:00)
[2018-07-22] MEDS ORDERED: Sterile Water Irrig 1000ml IRRIG ONE (11:00)
[2018-07-22] MEDS ORDERED: NS Irrig 1000ml ONE (11:00)
[2018-07-22] MEDS ORDERED: Propofol 200mg/20ml IV ONE (11:01)
[2018-07-22] MEDS ORDERED: fentaNYL 100 mcg/2 mL IV ONE (11:01)
[2018-07-22] MEDS ORDERED: Midazolam 2mg/2ml Inj ONE (11:01)
[2018-07-22] MEDS ORDERED: LR 1000ml 1,000 ML IVLG SCH (11:06)
[2018-07-22] MEDS ORDERED: LORazepam Inj 2mg/ml 1ml IV PRN (11:15)
[2018-07-22] MEDS ORDERED: DiphenhydrAMINE 50mg/ml Inj IVP PRN (11:15)
--- NOTE | 2018-07-22 11:24 | Pre-Procedure Note/Attestation ---
Pre-Procedure Note/Attestation Complete Prior to Procedure Planned Procedure: left Procedure Narrative: PPV/PRP/SO removal OS Indications for Procedure Pre-Operative Diagnosis: PDR/SO/Cat OS Attestation I attest that I discussed the nature of the procedure; its benefits; risks and complications; and alternatives (and the risks and benefits of such alternatives ), prior to the procedure, with the patient (or the patient's legal employer relations representative). I attest that, if there was a reasonable possibility of needing a blood transfusion, the patient (or the patient's legal employer relations representative) was given the [facility] standardized written summary, pursuant to the Corey Manda Blood Safety Act ([place] Health and Safety Code # 1645, as amended). I attest that I re-evaluated the patient just prior to the surgery and that there has been no change in the patient's H&P, except as documented below: Ryan Ruffin M.D., MD Jul 22, 2018 11:24
--- NOTE | 2018-07-22 11:25 | Operative Note - PDOC ---
Operative Note Operative Note Date of Operation/Procedure: Jul 22, 2018 Pre-op Diagnosis: PDR/SO/Cat OS Procedure: PPV/EL/SOR/AFE OS Post-op Diagnosis: Same Post-op Diagnosis: same as pre-op Surgeon: Laly Anesthesia: local Specimen: none Complications: none Condition: stable Estimated Blood Loss: none Drains: none Implant(s) used?: No Indications for Procedure Indications for the procedure: The patient has vision loss due to proliferative diabetic retinopathy/ tractional retinal detachment with SO and presents today for surgery. After review of the risks, benefits, alternative and the patient signed informed consent into the medical chart. Description of Procedure Procedure performed: The patient was met in the pre-op area where informed consent was reviewed. The operative eye was verified, marked and dilated. The patient was transferred to the operative suite, where cardiopulmonary monitoring was established and peribulbar anesthetic was administered without complications. The eye was prepped and draped in sterile ophthalmic fashion. Under microscope visualization the 23 gauge infusion line was placed inferotemporally. After visualization of the tip in the vitreous cavity, the infusion line was turned on. The superotemporal and superonasal cannulas were placed. The SO was removed from the eye. Under ReSight visualization, the view of the posterior pole was limited by cataract. Inspection of the posterior pole revealed areas of NV with minimal active connor; thus further peripheral vitrectomy was performed and endolaser was applied to perform complete PRP. No breaks were noted on peripheral exam. Air-fluid exchange was performed. The cannulas were removed and sclerotomies were sutured. The eye maintained normal intraocular pressure. Subconjunctival vancomycin and dexamethasone were administered. The lid speculum was removed. The eye was cleaned of prep and drape. Atropine drop and Maxitrol ointment was applied. A pressure patch was placed. The patient was turned over to the anesthesia team and transferred in stable condition to the PACU. Ryan Ruffin M.D., MD Jul 22, 2018 11:25
--- NOTE | 2018-07-22 12:12 | Immediate Post-Op Evaluation ---
Immediate Post-Op Evalulation Immediate Post-Op Evalulation Procedure: Left eye vitrectomy Date of Evaluation: Jul 22, 2018 Time of Evaluation: 12:11 IV Fluids: 500 Blood Products: 0 Estimated Blood Loss: 0 Urinary Output: 0 Blood Pressure Systolic: 158 Blood Pressure Diastolic: 89 Pulse Rate: 82 Respiratory Rate: 16 O2 Sat by Pulse Oximetry: 100 Temperature (Fahrenheit): 98.2 Pain Score (1-10): 0 Nausea: No Vomiting: No Complications 0 Patient Status: awake, reacts, patent, none Hydration Status: adequate Drug: N/A Estela Rome MD Jul 22, 2018 12:12
--- NOTE | 2018-07-22 13:35 | 48 Hour Post Anesthesia Eval ---
Post Anesthesia Evaluation Procedure: Left eye vitrectomy Date of Evaluation: Jul 22, 2018 Time of Evaluation: 13:34 Blood Pressure Systolic: 150 0: 89 Pulse Rate: 69 Respiratory Rate: 17 O2 Sat by Pulse Oximetry: 100 Airway: patent Nausea: No Vomiting: No Pain Intensity: 0 Hydration Status: adequate Cardiopulmonary Status: at baseline Mental Status/LOC: patient returned to baseline Post-Anesthesia Complications: 0 Follow-up care needed: ready to discharge Estela Rome MD Jul 22, 2018 13:35
== END 2018-07-22 14:40 | disposition home or self-care (01) ==
LOC: SUR 09:04
DX: E11.3532 Type 2 diabetes mellitus with proliferative diabetic retinopathy with traction retinal detachment not involving the macula, left eye (principal); Z79.4 Long term (current) use of insulin; I10 Essential (primary) hypertension; F32.9 Major depressive disorder, single episode, unspecified; F41.9 Anxiety disorder, unspecified; H40.9 Unspecified glaucoma; R64 Cachexia; E43 Unspecified severe protein-calorie malnutrition; E78.1 Pure hyperglyceridemia
CPT/HCPCS: 67121; 82962; J1100; J2250; J2704; J3010; J3370; J3490; 94003; 94150